=== PATIENT | male | born 1960 | race Caucasian/White ===

== ENCOUNTER 2016-06-10 14:42 | Inpatient (IN) | payer OTHER ==
[2016-06-10] MEDS ORDERED: Sodium Chloride 0.9% 10 ML Syringe FLUSH PRN (16:10)
[2016-06-10] MEDS ORDERED: Albuterol 0.083% 2.5 MG/3 ML Neb Soln NEB PRN (16:10)
[2016-06-10] MEDS ORDERED: Sodium Chloride 0.9% 1,000 ML IV SCH (16:15)
[2016-06-10] MEDS ORDERED: Nicotine 21 MG/24 Hr Patch ONE (16:51)
[2016-06-10] MEDS ORDERED: Ondansetron 4 MG/2 ML SDV IVPUSH PRN (17:11)
[2016-06-10] MEDS ORDERED: Acetaminophen 325 MG Tab PO PRN (17:44)
[2016-06-10] MEDS ORDERED: Acetaminophen 325 MG Tab ONE (17:45)
[2016-06-10] MEDS: Azithromycin 500 MG in Sodium Chloride 0.9% 250 ML IV SCH (17:51)
[2016-06-10] MEDS: chlordiazePOXIDE 25 MG Cap PO SCH (17:52)
[2016-06-10] MEDS: Nicotine 21 MG/24 Hr Patch TRDERM SCH (18:15)
[2016-06-10] MEDS ORDERED: Ketorolac 30 MG/ML SDV IVPUSH ONE (18:18)
[2016-06-10] MEDS ORDERED: Ketorolac 30 MG/ML SDV ONE (18:20)
[2016-06-10] MEDS: NS + KCl 20mEq/L 1,000 ML IV SCH (20:49)
[2016-06-11] MEDS: chlordiazePOXIDE 25 MG Cap PO SCH ×3 (00:22→16:23)
[2016-06-11] MEDS: NS + KCl 20mEq/L 1,000 ML IV SCH (04:04)
--- NOTE | 2016-06-11 09:56 | CR ---
DATE OF SERVICE: 06/10/16 CLINICAL DATA: Cough PA AND LATERAL CHEST: Comparison is made to a prior exam dated 12/12/11. The heart size is normal. The lungs are mildly hyperexpanded. There are poorly defined infiltrates in both mid lungs suspicious for pneumonia. The lungs are otherwise clear. A followup exam after treatment is recommended to confirm that these resolve. No pleural effusions. No pneumothorax. [id number] [facility]
[2016-06-11 13:23] VITALS: BP 123/70
[2016-06-11] MEDS: Azithromycin 500 MG in Sodium Chloride 0.9% 250 ML IV SCH (14:15)
--- NOTE | 2016-06-11 16:11 | PCM.DCSUM1 ---
Discharge Summary - Hospital Course Free Text/Narrative:: Pt was admitted with diagnosis of Acute left upper lobe pneumonia with atrial fibrillation and dehydration. He did have some bouts of loose stools. His sodium and potassium, were depleted from diarrhea. He was started on Iv azithromycin and also started on IV normal saline bolus followed by NS with 20 MEQ potassium at 125 cc/hr. 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 His initial troponin was negative. Patient did convert into normal sinus rhythm over night. In the morning he was feeling fine. remained afebrile. His white count was down to 17K. Mild cough. Pt was monitored over the day , he has not had a spike a fever and also has not had any more diarrhea. He has been feeding well and tolerating the diet. Pt has clinically improved and well hydrated. His Electrolytes are back to normal. Hence patient has been planned for discahrge. Plan is to continue azithromycin 250mg daily for next 3 days. Counselled on smoking cessation and started on nicotine patch. Incentive spirmotery every 2 hrs. Diet as tolerated. Followup in clinic in 1-2 wks for recheck. hem\ might need further cardiac workup, considering his recently afib and his strong family history of CAD. Brief History: Pt presented to clinic with 5 days history of fever with cough and feeling weak and short of breath. Work up did show Left upper lobe pneumonia with Afib and dehydration. Pt was admitted tfor treament of pneumonia. IV hydration and close cardiac monitoring. - Discharge Data Discharge Date: 06/11/16 Discharge Disposition: Home, Self-Care 01 Condition: Good - Discharge Diagnosis/Problem(s) (1) Left upper lobe pneumonia SNOMED Code(s): 054429823 ICD Code: J18.1 - LOBAR PNEUMONIA, UNSPECIFIED ORGANISM Status: Acute Current Visit: Yes - Patient Instructions Diet: Heart Healthy Diet Fluid Restriction: 1500 mL Activity: As Tolerated Driving: May Drive Today Showering/Bathing: May Shower Notify Provider of: Fever, Nausea and/or Vomiting - Discharge Plan Prescriptions/Med Rec: Azithromycin [IJD: Azithromycin] 250 mg PO DAILY #3 tab Nicotine [Nicotine Patch] 1 patch TD DAILY #14 patch.td24 Home Medications: Home Meds Azithromycin [IJD: Azithromycin] 250 mg PO DAILY #3 tab 06/11/16 [Rx] Nicotine [Nicotine Patch] 1 patch TD DAILY #14 patch.td24 06/11/16 [Rx] - Discharge Summary/Plan Comment DC Time >30 min.: Yes Discharge Summary/Plan Comment: Plan is to continue azithromycin 250mg daily for next 3 days. Counselled on smoking cessation and started on nicotine patch. Incentive spirmotery every 2 hrs. Diet as tolerated. Followup in clinic in 1-2 wks for recheck. he might need further cardiac workup, considering his recently afib and his strong family history of CAD. - General Info Date of Service: 06/11/16 Functional Status: Reports: tolerating diet, ambulating, urinating, incentive spirometry - Review of Systems General: Denies: Fever, Weakness, Fatigue HEENT: Denies: headaches, sinus congestion, rhinitis Pulmonary: Reports: cough. Denies: shortness of breath, sputum, hemoptysis, wheezing Cardiovascular: Denies: Chest Pain, Lightheadedness Gastrointestinal: Denies: Abdominal pain, Constipation, Diarrhea, Nausea, Vomiting Genitourinary: Denies: dysuria, frequency Musculoskeletal: Denies: joint pain, joint swelling Neurological: Denies: Dizziness, Weakness, Gait Disturbance Psychiatric: Denies: confusion, depression - Patient Data Vitals - Most Recent: Last Vital Signs Temp 98.7 F 06/11/16 13:00 Pulse 92 06/11/16 13:00 Resp 16 06/11/16 13:00 BP 123/70 06/11/16 13:00 Pulse Ox 95 06/11/16 13:00 Weight - Most Recent: 73.992 kg I&O - Last 24 hours: Intake & Output 06/11/16 06/11/16 06/11/16 06:59 14:59 22:59 Intake Total 2511 Balance 2511 Lab Results - Last 24 hrs: Laboratory Results - last 24 hr 06/11/16 06/11/16 Range/Units 07:00 07:10 WBC 17.5 H (4.0-11.0) K/uL RBC 4.21 L (4.50-6.50) M/uL Hgb 14.8 (13.0-18.0) g/dL Hct 41.5 (40.0-54.0) % MCV 99 H (76-96) fL MCH 35.2 H (27.0-32.0) pg MCHC 35.7 H (31.0-35.0) g/dL RDW 13.4 (11.0-16.0) % Plt Count 100 L (150-400) K/uL MPV 10.6 H (6.0-10.0) fL Neut % (Auto) 90.0 H (45.0-70.0) % Lymph % (Auto) 5.9 L (20.0-40.0) % [place] % (Auto) 4.0 (3.0-10.0) % Eos % (Auto) 0.0 L (1.0-5.0) % Baso % (Auto) 0.1 (0.0-0.5) % Neut # (Auto) 15.78 H (2.00-7.50) K/uL Lymph # (Auto) 1.04 L (1.50-4.00) K/uL [place] # (Auto) 0.70 (0.20-0.80) K/uL Eos # (Auto) 0.00 L (0.04-0.40) K/uL Baso # (Auto) 0.02 (0.02-0.10) K/uL Sodium 136 (136-145) mmol/L Potassium 3.8 (3.5-5.1) mmol/L Chloride 99 (98-107) mmol/L Carbon Dioxide 23.2 (21.0-32.0) mmol/L Anion Gap 17.6 H (5.0-15.0) mmol/L BUN 18 D (8-26) mg/dL Creatinine 1.30 (0.70-1.30) mg/dL Est Cr Clr Drug Dosing 70.17 mL/min Estimated GFR (MDRD) 58 L (>60) MLS/MIN BUN/Creatinine Ratio 13.8 (6-25) Glucose 105 H (74-100) mg/dL Calcium 8.0 L (8.5-10.1) mg/dL CANDE Results - Last 24 hrs: Microbiology 06/10/16 17:23 MRSA Surveillance Culture - Final Nares, Unspecified NO MRSA ISOLATED Med Orders - Current: Current Medications Acetaminophen (Tylenol) 650 mg PO Q4H PRN PRN Reason: Fever Last Admin: 06/10/16 17:50 Dose: 650 mg Albuterol (Proventil Neb Soln) 2.5 mg NEB Q6H PRN PRN Reason: Shortness Of Breath/wheezing Chlordiazepoxide HCl (Librium) 25 mg PO Q8H [facility] Last Admin: 06/11/16 09:01 Dose: 25 mg Azithromycin 500 mg/ Sodium (Chloride) 250 mls @ 250 mls/hr IV Q24H [facility] Last Admin: 06/11/16 14:15 Dose: 250 mls/hr Sodium Chloride (Normal Saline) 1,000 mls @ 125 mls/hr IV ASDIRECTED [facility] Last Admin: 06/10/16 17:00 Dose: 125 mls/hr Potassium Chloride/Sodium Chloride (Normal Saline With 20 Meq Kcl) 1,000 mls @ 125 mls/hr IV ASDIRECTED [facility] Last Admin: 06/11/16 04:04 Dose: 125 mls/hr Nicotine (Habitrol) 21 mg TRDERM DAILY [facility] Last Admin: 06/10/16 18:15 Dose: 21 mg Ondansetron HCl (Zofran) 4 mg IVPUSH Q6H PRN PRN Reason: Nausea Sodium Chloride (Saline Flush) 10 ml FLUSH ASDIRECTED PRN PRN Reason: Keep Vein Open Discontinued Medications Acetaminophen (Tylenol) Confirm Administered Dose 650 mg .ROUTE .STK-MED ONE Stop: 06/10/16 17:46 Last Admin: 06/10/16 17:50 Dose: Not Given Ketorolac Tromethamine (Toradol) 30 mg IVPUSH ONETIME ONE Stop: 06/10/16 18:19 Last Admin: 06/10/16 18:27 Dose: 30 mg Ketorolac Tromethamine (Toradol) Confirm Administered Dose 30 mg .ROUTE .STK- MED ONE Stop: 06/10/16 18:21 Last Admin: 06/10/16 19:44 Dose: Not Given Nicotine (Habitrol) Confirm Administered Dose 21 mg .ROUTE .STK-MED ONE Stop: 06/10/16 16:52 Last Admin: 06/10/16 19:44 Dose: Not Given - Exam General: Reports: alert, oriented, cooperative HEENT: Reports: Pupils equal, Pupils reactive, EOMI, Mucous membr. moist/pink Neck: Reports: supple Lungs: Reports: Decreased breath sounds (left upper lobe), Crackles (few in left infraclavicular region) Cardiovascular: Reports: Regular Rate, Regular Rhythm Abdomen: Reports: bowel sounds present, soft, no tenderness, no distension Extremities: Reports: no edema, normal pulses Skin: Reports: warm, dry, intact Neurological: Reports: no new focal deficit Psy/Mental Status: Reports: alert, normal affect, normal mood *Q Meaningful Use (DIS) - VTE *Q VTE Criteria *Q: - Stroke *Q Stroke Criteria *Q: - AMI *Q AMI Criteria *Q:
[2016-06-11] MEDS: Nicotine 21 MG/24 Hr Patch TRDERM SCH (16:24)
== END 2016-06-11 16:30 | disposition home or self-care (01) | DRG 194 ==
LOC: LB.CLINIC 14:42 → UNDOADMIN 15:45 → LB.MS 15:45
PROVIDERS: ADMIT Family Medicine; ATTEND Family Medicine
DX: J18.1 Lobar pneumonia, unspecified organism (principal); E87.1 Hypo-osmolality and hyponatremia; I48.91 Unspecified atrial fibrillation; E86.0 Dehydration; E87.6 Hypokalemia; Z82.49 Family history of ischemic heart disease and other diseases of the circulatory system; F17.210 Nicotine dependence, cigarettes, uncomplicated
CPT/HCPCS: 36415; 71020; 80048; 84484; 85025; 93005; A9270-GY; J0456; J1885; J3480; J7040; J7050

== ENCOUNTER 2016-11-07 12:37 | Emergency (ER) | payer MEDICAID, OTHER ==
[2016-11-07] MEDS ORDERED: Lidocaine 1% with EPINEPHrine 1:100,000 20 ML MDV ONE (13:00)
--- NOTE | 2016-11-07 13:18 | EDM.PDOC ---
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) Location: Reports: Neck (left side) Improves with: Reports: None Worsens with: Reports: None Treatments PHYSICAL PLANT MANAGER: Reports: Other (see below) (held pressure) - Related Data Allergies Allergy/AdvReac Type Severity Reaction Status Date / Time No Known Allergies Allergy Verified 06/10/16 15:55 Home Meds: Home Meds NK [No Known Home Meds] 11/07/16 [History] Past Medical History - Past Health History Medical/Surgical History: Denies Medical/Surgical History Social & Family History - Family History Family Medical History: Noncontributory - Tobacco Use Smoking Status *Q: Current Every Day Smoker Years of Tobacco use: 30 Packs/Tins Daily: 1 Used Tobacco, but Quit: No Second Hand Smoke Exposure: Yes - Caffeine Use Caffeine Use: Reports: None - Recreational Drug Use Recreational Drug Use: No ED ROS GENERAL - Review of Systems Review Of Systems: ROS reveals no pertinent complaints other than HPI. ED EXAM, GENERAL - Physical Exam Exam: See Below Exam Limited By: No Limitations General Appearance: Alert, WD/WN Head: Atraumatic, Normocephalic Neck: Other (laceration to the left side of neck, 2 cm long, linear, not bleeding) Respiratory/Chest: No Respiratory Distress, Lungs Clear, Normal Breath Sounds Cardiovascular: Regular Rate, Rhythm Back Exam: Full Range of Motion Extremities: Normal Inspection, Normal Range of Motion Neurological: Alert, Oriented, CN II-XII Intact, Normal Cognition, Normal Gait Psychiatric: Normal Affect Skin Exam: Warm, Dry ED GENERAL MEDICAL PROCEDURES - Laceration/Wound Repair Left Middle Mid-Anterior Lateral Neck Lac/wound length in cm: 2 Appearance: Subcutaneous Anesthetic Type: Local Local Anesthesia - Lidocaine (Xylocaine): 1% Plain Skin Prep: Providone-Iodine (Betadine), Saline, Sterile Drape Exploration/Debridement/Repair: Wound Explored, In a Bloodless Field, Explored to Base, No Foreign Material Found, Wound Margins Revised Closed with: Sutures Suture Size: 4-0 Suture Type: Nylon Repaired with: Vicryl Drain Placement: No Sterile Dressing Applied: Provider Tetanus Status Addressed: Yes Complications: No Course - Vital Signs Last Recorded V/S: Last Vital Signs Temp 96 F 11/07/16 12:40 Pulse 96 11/07/16 12:40 Resp 20 11/07/16 12:40 BP 140/110 H 11/07/16 12:40 Pulse Ox 97 11/07/16 12:40 - Re-Assessments/Exams Free Text/Narrative Re-Assessment/Exam: 11/07/16 13:15 Tolerated sutures without complication Departure - Departure Time of Disposition: 14:00 Disposition: Home, Self-Care 01 Condition: Good Clinical Impression: Laceration of neck - Discharge Information Instructions: Laceration Care, Adult Referrals: PCP,None [Primary Care Provider] - Forms: ED Department Discharge Care Plan Goals: Keep area clean and dry for 24 to [address] in 10 days to have sutures removed. Clinic # is [id number]. No tetanus given as stated has had one recently. - Problem List & Annotations (1) Laceration of neck SNOMED Code(s): 198633007 Code(s): S11.91XA - LACERATION W/O FOREIGN BODY OF UNSP PART OF NECK, INIT Status: Acute Priority: Medium Qualifiers: Encounter type: initial encounter Qualified Code(s): S11.91XA - Laceration without foreign body of unspecified part of neck, initial encounter - Problem List Review Problem List Initiated/Reviewed/Updated: Yes
[2016-11-07 20:15] VITALS: BP 130/90
== END 2016-11-07 13:15 | disposition home or self-care (01) ==
LOC: LB.ED 12:37
DX: S11.81XA Laceration without foreign body of other specified part of neck, initial encounter (principal); F17.210 Nicotine dependence, cigarettes, uncomplicated; W22.8XXA Striking against or struck by other objects, initial encounter
CPT/HCPCS: 12001; 99283-25

== ENCOUNTER 2017-05-01 13:40 | Observation (INO) | payer MEDICAID ==
--- NOTE | 2017-05-01 13:59 | EDM.PDOC ---
ED HPI GENERAL MEDICAL PROBLEM - General Chief Complaint: General Stated Complaint: A-FIB Time Seen by Provider: 05/01/17 13:40 Source of Information: Reports: Patient History Limitations: Reports: No Limitations - History of Present Illness INITIAL COMMENTS - FREE TEXT/NARRATIVE: According to patient he was fishing yesterday and last night he fell back wards on the ice and hit his lefy side of the back hard on the ice. he was able to breath and had not chest pain. He had drunk several beers, went to bed. Woke up today and started to feel like his heart was racing and not right. No fatigue. no chest pain, shortness of breath. No nausea or vomiting.His checked his pulse and was fast. He did try drinking some more beer today to see if the racing heart would get better, and it did not and hence came into emergency room. Pt was here in the emergency room in May of 2016 with pneumonia, when he had afib. Pt was advised to followup his his PCP, never followed up with physician after discharged from emergency room until today. Presently not on any meds. Onset: Today Onset Date: 05/01/17 Location: Reports: Chest (left posterior) Quality: Reports: Ache Severity: Mild Improves with: Reports: None Worsens with: Reports: None Associated Symptoms: Denies: Confusion, Chest Pain, Cough, Fever/Chills, Headaches, Nausea/Vomiting, Rash, Seizure, Shortness of Breath, Syncope, Weakness - Related Data Allergies Allergy/AdvReac Type Severity Reaction Status Date / Time No Known Allergies Allergy Verified 06/10/16 15:55 Home Meds: Home Meds NK [No Known Home Meds] 11/07/16 [History] Past Medical History - Past Health History Medical/Surgical History: Denies Medical/Surgical History Social & Family History - Family History Family Medical History: Noncontributory - Tobacco Use Smoking Status *Q: Heavy Tobacco Smoker Years of Tobacco use: 37 Packs/Tins Daily: 1 Used Tobacco, but Quit: No Second Hand Smoke Exposure: No - Caffeine Use Caffeine Use: Reports: Coffee - Alcohol Use Days Per Week of Alcohol Use: 5 Number of Drinks Per Day: 2 Total Drinks Per Week: 10 - Recreational Drug Use Recreational Drug Use: No ED ROS GENERAL - Review of Systems Review Of Systems: See Below Constitutional: Denies: Fever, Chills, Weakness, Fatigue HEENT: Denies: Contact Lenses, Rhinitis, Throat Pain, Throat Swelling Respiratory: Denies: Shortness of Breath, Pleuritic Chest Pain, Cough, Sputum Cardiovascular: Denies: Chest Pain, Lightheadedness Endocrine: Denies: Fatigue GI/Abdominal: Denies: Nausea, Vomiting : Denies: Dysuria, Flank Pain, Urgency, Urinary Retention Musculoskeletal: Reports: Back Pain (left mid back from fall). Denies: Joint Pain, Joint Swelling Skin: Denies: Bruising, Pruritis, Rash, Erythema Neurological: Denies: Confusion, Dizziness, Headache, Numbness, Paresthesia, Tingling, Tremors, Trouble Speaking, Difficulty Walking, Weakness Psychiatric: Denies: Agitation, Anxiety, Confusion ED EXAM, GENERAL - Physical Exam Exam: See Below Exam Limited By: No Limitations General Appearance: Alert, WD/WN, No Apparent Distress, Other (smells of alcohol ) Eye Exam: Bilateral Eye: EOMI, PERRL Ears: Normal External Exam, Normal Canal, Hearing Grossly Normal, Normal TMs Ear Exam: Bilateral Ear: Auricle Normal, Canal Normal, TM normal Nose: Normal Inspection, Normal Mucosa, No Blood Throat/Mouth: Normal Inspection, Normal Lips, Normal Teeth, Normal Gums, Normal Oropharynx, Normal Voice, No Airway Compromise Head: Atraumatic, Normocephalic Neck: Normal Inspection, Supple, Non-Tender, Full Range of Motion Respiratory/Chest: No Respiratory Distress, Lungs Clear, Normal Breath Sounds, No Accessory Muscle Use, Other (mild tenderness over the posterior left chest wall. no crepitus, no swelling or bruising) Cardiovascular: Normal Peripheral Pulses (irregular), No Edema, No Gallop, No JVD, Irregularly Irregular Peripheral Pulses: 2+: Carotid (L), Carotid (R), Radial (L), Radial (R) GI/Abdominal: Normal Bowel Sounds, Soft, Non-Tender, No Organomegaly, No Distention, No Abnormal Bruit, No Mass Extremities: Normal Inspection, Normal Range of Motion, Non-Tender, Normal Capillary Refill, No Pedal Edema Neurological: Alert, Oriented, CN II-XII Intact, Normal Cognition, Normal Gait, Normal Reflexes, No Motor/Sensory Deficits EKG INTERPRETATION EKG Date: 05/01/17 Rhythm: A-Fib Rate (Beats/Min): 172 [place]: Normal QRS: Normal ST-T: Normal QT: Normal Course - Vital Signs Text/Narrative:: Pt is in Atrial fibrillation with rapid ventricular rate. His BP is 150/123mmhg and his heart rate is running around 160-180s and irregular. His CBC is normal. His CMP is normal. His Troponin is negative. TSH and ETOH pending. His A-fib which appears like chronic, as he had afib in May of 2016 too.He has never seen physician and had any workup. At this point, I have discussed with patient and his , that he probably need the heart rate down to prevent further stress to the heart. The only way to do that is by starting him on diltiazem drip to control the heart rate.Pathophysiology of Afib discussed with patient. Pt will be admitted for observation, started on diltiazem bolus of 15mg followed by 5mg/hr maintainence drip. 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 Diltiazem should help bring his BP down too. His chest xray is normal, and his WBC is normal, there is no infective process triggering the Afib. It might be uncontrolled blood pressure, alcohol or hypothyroidism. - Orders/Labs/Meds Orders: Active Orders 24 hr Category Date Time Status EKG Documentation Completion [RC] ASDIRECTED Care 05/01/17 13:49 Active Chest 2V [CR] Stat Exams 05/01/17 13:50 Taken ETOH [ETHANOL BLOOD MEDICAL] [CHEM] Stat Lab 05/01/17 14:15 Received TSH ULTRASENSITIVE [CHEM] Stat Lab 05/01/17 14:15 Received Labs: Laboratory Tests 05/01/17 05/01/17 Range/Units 14:15 14:15 WBC 9.4 D (4.0-11.0) K/uL RBC 4.39 L (4.50-6.50) M/uL Hgb 14.9 (13.0-18.0) g/dL Hct 43.1 (40.0-54.0) % MCV 98 H (76-96) fL MCH 33.9 H (27.0-32.0) pg MCHC 34.6 (31.0-35.0) g/dL RDW 13.5 (11.0-16.0) % Plt Count 263 D (150-400) K/uL MPV 9.9 (6.0-10.0) fL Neut % (Auto) 72.9 H (45.0-70.0) % Lymph % (Auto) 17.6 L (20.0-40.0) % [place] % (Auto) 7.0 (3.0-10.0) % Eos % (Auto) 1.1 (1.0-5.0) % Baso % (Auto) 1.4 H (0.0-0.5) % Neut # (Auto) 6.86 (2.00-7.50) K/uL Lymph # (Auto) 1.65 (1.50-4.00) K/uL [place] # (Auto) 0.66 (0.20-0.80) K/uL Eos # (Auto) 0.10 (0.04-0.40) K/uL Baso # (Auto) 0.13 H (0.02-0.10) K/uL Sodium 147 H (136-145) mmol/L Potassium 3.6 (3.5-5.1) mmol/L Chloride 108 H (98-107) mmol/L Carbon Dioxide 21.6 (21.0-32.0) mmol/L Anion Gap 21.0 H (5.0-15.0) mmol/L BUN 7 L D (8-26) mg/dL Creatinine 0.93 D (0.70-1.30) mg/dL Est Cr Clr Drug Dosing TNP Estimated GFR (MDRD) > 60 (>60) MLS/MIN BUN/Creatinine Ratio 7.5 (6-25) Glucose 101 H (74-100) mg/dL Calcium 8.3 L (8.5-10.1) mg/dL Total Bilirubin 0.6 (0.0-1.0) mg/dL AST 25 (15-37) U/L ALT 21 (12-78) U/L Alkaline Phosphatase 84 (46-116) U/L Troponin I < 0.017 (0.000-0.060) ng/mL Total Protein 7.2 (6.4-8.2) g/dL Albumin 3.1 L (3.4-5.0) g/dL Globulin 4.1 (2.2-4.2) g/dL Albumin/Globulin Ratio 0.8 (0.8-2.0) Departure - Departure Time of Disposition: 15:30 Disposition: Refer to Observation Condition: Fair Clinical Impression: Atrial fibrillation with rapid ventricular response - Discharge Information Referrals: PCP,None [Primary Care Provider] - Forms: ED Department Discharge - Problem List & Annotations (1) Atrial fibrillation with rapid ventricular response SNOMED Code(s): 371007165255718 Code(s): I48.91 - UNSPECIFIED ATRIAL FIBRILLATION Status: Acute Current Visit: Yes - Problem List Review Problem List Initiated/Reviewed/Updated: Yes - My Orders Last 24 Hours: My Active Orders 05/01/17 13:49 EKG Documentation Completion [RC] ASDIRECTED 05/01/17 13:50 Chest 2V [CR] Stat 05/01/17 14:15 ETOH [ETHANOL BLOOD MEDICAL] [CHEM] Stat TSH ULTRASENSITIVE [CHEM] Stat - Assessment/Plan Admission H&P: Please use this note as an admission H&P Last 24 Hours: My Active Orders 05/01/17 13:49 EKG Documentation Completion [RC] ASDIRECTED 05/01/17 13:50 Chest 2V [CR] Stat 05/01/17 14:15 ETOH [ETHANOL BLOOD MEDICAL] [CHEM] Stat TSH ULTRASENSITIVE [CHEM] Stat Assessment:: Atrial fibrillation with RVR Plan: Pt is in Atrial fibrillation with rapid ventricular rate. His BP is 150/123mmhg and his heart rate is running around 160-180s and irregular. His CBC is normal. His CMP is normal. His Troponin is negative. TSH and ETOH pending. His A-fib which appears like chronic, as he had afib in May of 2016 too.He has never seen physician and had any workup. At this point, I have discussed with patient and his , that he probably need the heart rate down to prevent further stress to the heart. The only way to do that is by starting him on diltiazem drip to control the heart rate.Pathophysiology of Afib discussed with patient. Pt will be admitted for observation, started on diltiazem bolus of 15mg followed by 5mg/hr maintainence drip. 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 Diltiazem should help bring his BP down too. His chest xray is normal, and his WBC is normal, there is no infective process triggering the Afib. It might be uncontrolled blood pressure, alcohol or hypothyroidism.
[2017-05-01] MEDS ORDERED: Sodium Chloride 0.9% 10 ML Syringe FLUSH PRN (15:26)
[2017-05-01] MEDS ORDERED: Diltiazem 25 MG/5 ML SDV IVPUSH ONE (15:29)
[2017-05-01] MEDS ORDERED: Diltiazem 100 MG in Sodium Chloride 0.9% 100 ML IV SCH (15:30)
--- NOTE | 2017-05-01 22:41 | PCM.SN ---
- Free Text/Narrative Note: I did get nurse call around 10 as patient had converted and he did get EKG done after conversion. EKG did shows mild St segment elevation like changes in infero -lateral leads. pt has been asymptomatic and has no chest pain. 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 and the EKG were faxed to him for evaluation. Dr. Dennis reassured that patient does not have Acute TN but they are the flutter waves overlapping the beats . Also repeat troponin that was done was negative and patient has been asymptomatic. PLan was to continue diltiazem drip until Am and when rate is well controlled to get him on oral diltiazem.
[2017-05-02] MEDS ORDERED: Diltiazem IR 60 MG Tab PO ONE (08:12)
[2017-05-02 08:52] VITALS: BP 125/83
--- NOTE | 2017-05-02 09:22 | PCM.DCSUM1 ---
Discharge Summary - Hospital Course Free Text/Narrative:: Pt was admitted with the diagnosis of Atrial fibrillation with RVR with rates running around 170-190s. Pt's LAbs were stable other than his ETOH level of 178. CBC, CMP normal. TSH normal. Troponin negative. Pt did receive diltiazem IV bolus of 15mg followed by 5mg/hr drip. Pt was admitted for observation and cardiac monitoring. Pt's ventricular rate did gradually start to drop over the day.He remained asymptomatic. Around 10 PM last night his rate dropped under 100 and at which point repeat EKG was done which was concerning for changes in infero-lateral lead, but patinet was asymptomatic. I did contact Dr. Fisher the director of research and development at [facility] and have him review the EKG, he reassured that it was the atrial flutter overlap causing it. Also troponin was repeated which was negative. Hence pt was kept on cardizem drip overnight. Today morning patient rate is around 80s and also his rhythm is regular. I have discontinued cardizem drip and started him on oral diltiazem 90mg TID. I have counselled patient on stroke prophylaxis today, but have not started on coumadin as he is in sinus rhythm. This might have been a random or paroxysmal episodes. I have advised him to followup on wednesday for recheck and will repeat EKG and if his rhythm is irregular , he might need to go on anticoagulation therapy. also ECHO has been scheduled. Pt understand and agrees with the plan. Brief History: Pt presented to emergency room yesterday with palpitations started last night. no chest pain, fatigue SOB. Pt was in Afib with RVR admitted for rate control. Kindly see H&P for details. - Discharge Data Discharge Date: 05/02/17 Discharge Disposition: Home, Self-Care 01 Condition: Serious - Discharge Diagnosis/Problem(s) (1) Atrial fibrillation with rapid ventricular response SNOMED Code(s): [id number] ICD Code: I48.91 - UNSPECIFIED ATRIAL FIBRILLATION Status: Acute Current Visit: Yes - Patient Instructions Diet: Heart Healthy Diet Fluid Restriction: 1500 mL Activity: As Tolerated Driving: May Drive Today Showering/Bathing: May Shower - Discharge Plan Home Medications: Home Meds NK [No Known Home Meds] 11/07/16 [History] Forms: ED Department Discharge Referrals: PCP,None [Primary Care Provider] - - Discharge Summary/Plan Comment DC Time >30 min.: Yes Discharge Summary/Plan Comment: I have discontinued cardizem drip and started him on oral diltiazem 90mg TID. I have counselled patient on stroke prophylaxis today, but have not started on coumadin as he is in sinus rhythm. This might have been a random or paroxysmal episodes. I have advised him to followup on wednesday for recheck and will repeat EKG and if his rhythm is irregular , he might need to go on anticoagulation therapy. also ECHO has been scheduled. - General Info Date of Service: 05/02/17 Functional Status: Reports: Tolerating Diet, Ambulating, Urinating - Review of Systems General: Denies: Fever, Weakness, Fatigue, Night Sweats HEENT: Denies: Headaches, Sore Throat, Visual Changes Pulmonary: Denies: Shortness of Breath, Pleuritic Chest Pain, Sputum, Hemoptysis Cardiovascular: Denies: Chest Pain, Lightheadedness Gastrointestinal: Denies: Abdominal Pain, Nausea, Vomiting Genitourinary: Denies: Frequency, Burning, Flank Pain Musculoskeletal: Denies: Joint Pain, Joint Swelling Skin: Denies: Pruritis, Rash Neurological: Denies: Confusion, Dizziness, Headache, Numbness, Tingling, Weakness - Patient Data Vitals - Most Recent: Last Vital Signs Temp Pulse 79 05/02/17 08:51 Resp 20 05/02/17 03:43 BP 125/83 05/02/17 08:51 Pulse Ox 96 05/02/17 03:43 Weight - Most Recent: 83.915 kg I&O - Last 24 hours: Intake & Output 05/01/17 05/02/17 05/02/17 22:59 06:59 14:59 Intake Total 1016 Balance 1016 Lab Results - Last 24 hrs: Laboratory Results - last 24 hr 05/01/17 Range/Units 22:30 Troponin I 0.027 D (0.000-0.060) ng/mL Med Orders - Current: Current Medications Diltiazem HCl 100 mg/ Sodium (Chloride) 100 mls @ 5 mls/hr IV TITRATE MANDI; 5 MG /HR PRN Reason: Protocol Last Admin: 05/01/17 16:35 Dose: 5 mg/hr, 5 mls/hr Sodium Chloride (Saline Flush) 10 ml FLUSH ASDIRECTED PRN PRN Reason: Keep Vein Open Discontinued Medications Diltiazem HCl (Diltiazem) 15 mg IVPUSH ONETIME ONE Stop: 05/01/17 15:30 Last Admin: 05/01/17 16:30 Dose: 15 mg Diltiazem HCl (Cardizem) 90 mg PO ONETIME ONE Stop: 05/02/17 08:13 Last Admin: 05/02/17 08:51 Dose: 90 mg - Exam General: Reports: Alert, Oriented HEENT: Reports: Pupils Equal, Pupils Reactive, EOMI, Mucous Membr. Moist/[place] Neck: Reports: Supple Lungs: Reports: Clear to Auscultation, Normal Respiratory Effort Cardiovascular: Reports: Regular Rate, Regular Rhythm GI/Abdominal Exam: Normal Bowel Sounds, Soft, Non-Tender, No Organomegaly, No Distention, No Abnormal Bruit, No Mass, Pelvis Stable Back Exam: Reports: Normal Inspection, Full Range of Motion Extremities: Normal Inspection, Normal Range of Motion, Non-Tender, No Pedal Edema, Normal Capillary Refill Skin: Reports: Warm, Dry, Intact Neurological: Reports: No New Focal Deficit *Q Meaningful Use (DIS) - VTE *Q VTE Criteria *Q: - Stroke *Q Stroke Criteria *Q: - AMI *Q AMI Criteria *Q:
--- NOTE | 2017-05-02 19:18 | CR ---
DATE OF SERVICE: 05/01/2017 CLINICAL DATA: AFIB. PA AND LATERAL CHEST: Comparison is made to a prior exam dated 06/10/2016. The heart size is normal. The lungs are mildly hyperexpanded but clear. No pneumothorax. No pleural effusions. No other significant findings. IMPRESSION: Findings consistent with COPD. No acute abnormalities. [id number] [facility]
== END 2017-05-02 10:18 | disposition home or self-care (01) ==
LOC: LB.ED 13:40 → LB.MS 15:27 → UNDOADMOB 16:15 → UNDODISOB 05-02 10:18
PROVIDERS: ADMIT Family Medicine; ATTEND Family Medicine
DX: I48.91 Unspecified atrial fibrillation (principal); F17.210 Nicotine dependence, cigarettes, uncomplicated; W00.0XXA Fall on same level due to ice and snow, initial encounter
CPT/HCPCS: 36415; 71046; 80053; 84443; 84484; 85025; 93005; 99284; A9270; G0480; J3490; J7030; 96374; 99217; 99220; G0378

== ENCOUNTER 2017-11-22 19:40 | Emergency (ER) | payer BC, MEDICAID ==
[2017-11-22] MEDS ORDERED: Amoxicillin/Clavulanate K 875-125 MG Tab ONE (20:00)
[2017-11-22] MEDS ORDERED: predniSONE 10 MG Tab ONE (20:00)
[2017-11-22 20:50] VITALS: BP 125/84
--- NOTE | 2017-11-25 14:08 | EDM.PDOC ---
ED HPI GENERAL MEDICAL PROBLEM - General Chief Complaint: Respiratory Problem Stated Complaint: COUGH Time Seen by Provider: 11/22/17 20:00 Source of Information: Reports: Patient History Limitations: Reports: No Limitations - History of Present Illness INITIAL COMMENTS - FREE TEXT/NARRATIVE: This is a 57yo M here for cough. Nursing did vitals and note a pulse of 112. EKG requested verbally on notification of patient in ER. Patient states he does have some fatigue and cough but denies any chest pain, no shortness of breath on exertion, no dyspnea, no other symptoms. He was told by [facility] Nurse that he needs a further workup. Onset: Gradual Duration: Day(s): Location: Reports: Generalized Severity: Mild Improves with: Reports: None Worsens with: Reports: None Associated Symptoms: Reports: Cough, Shortness of Breath - Related Data Allergies Allergy/AdvReac Type Severity Reaction Status Date / Time No Known Allergies Allergy Verified 11/22/17 20:14 Home Meds: Home Meds Diltiazem [Cardizem] 120 mg PO BEDTIME 11/22/17 [History] Past Medical History - Past Health History Medical/Surgical History: Denies Medical/Surgical History Cardiovascular History: Reports: Afib Respiratory History: Reports: COPD Gastrointestinal History: Reports: None Genitourinary History: Reports: None Musculoskeletal History: Reports: Back Pain, Chronic Neurological History: Reports: None Psychiatric History: Reports: None Endocrine/Metabolic History: Reports: None Oncologic (Cancer) History: Reports: None Dermatologic History: Reports: None - Infectious Disease History Infectious Disease History: Reports: Chicken Pox, Measles, Mumps - Past Surgical History GI Surgical History: Reports: Hernia, Inguinal Social & Family History - Family History Family Medical History: Noncontributory - Tobacco Use Smoking Status *Q: Current Every Day Smoker Years of Tobacco use: 39 Packs/Tins Daily: 1 Second Hand Smoke Exposure: Yes - Caffeine Use Caffeine Use: Reports: Coffee, Soda - Recreational Drug Use Recreational Drug Use: No ED ROS GENERAL - Review of Systems Review Of Systems: ROS reveals no pertinent complaints other than HPI. ED EXAM, GENERAL - Physical Exam Exam: See Below Exam Limited By: No Limitations General Appearance: Alert, WD/WN, No Apparent Distress Eye Exam: Bilateral Eye: EOMI, PERRL Ears: Normal External Exam Nose: Normal Inspection Throat/Mouth: Normal Inspection, Normal Lips, Normal Teeth, Normal Gums, Normal Oropharynx, Normal Voice, No Airway Compromise Head: Atraumatic, Normocephalic Neck: Normal Inspection, Supple Respiratory/Chest: No Respiratory Distress, Lungs Clear, Normal Breath Sounds Cardiovascular: Normal Peripheral Pulses, Tachycardia GI/Abdominal: Normal Bowel Sounds Back Exam: Normal Inspection Extremities: Normal Inspection Neurological: Alert, Oriented, CN II-XII Intact Psychiatric: Normal Affect, Normal Mood Skin Exam: Warm, Dry, Intact EKG INTERPRETATION EKG Interpretation Comments: Discussed results with Dr. Lowery. He notes a 2:1 Atrial tachycardia and does not feel that the 1st degree AV block is from the diltiazem despite common adverse reactions. Discussed management. Course - Vital Signs Last Recorded V/S: Last Vital Signs Temp 35.8 C 11/22/17 19:52 Pulse 112 H 11/22/17 19:52 Resp 16 11/22/17 19:52 BP 125/84 11/22/17 19:52 Pulse Ox 99 11/22/17 19:52 - Orders/Labs/Meds Meds: Medications Discontinued Medications Generic Name Dose Route Start Last Admin Trade Name Hugo PRN Reason Stop Dose Admin Amoxicillin/Clavulanate Potassium 20 tab 11/22/17 20:00 Augmentin 875 Mg/125 Mg .ROUTE 11/22/17 20:01 .STK-MED ONE Prednisone 150 mg 11/22/17 20:00 Prednisone .ROUTE 11/22/17 20:01 .STK-MED ONE Departure - Departure Time of Disposition: 21:30 Disposition: Home, Self-Care 01 Condition: Good Clinical Impression: Atrial tachycardia determined by electrocardiography COPD (chronic obstructive pulmonary disease) Qualifiers: COPD type: unspecified COPD Qualified Code(s): J44.9 - Chronic obstructive pulmonary disease, unspecified - Discharge Information Instructions: Aspirin, ASA chewable tablets, Amoxicillin; Clavulanic Acid tablets, Budesonide; Formoterol Inhalation, Chronic Obstructive Pulmonary Disease, [id number], First-Degree Atrioventricular Block, Prednisone tablets Referrals: PCP,None [Primary Care Provider] - Forms: ED Department Discharge Additional Instructions: - Increase Diltiazem 120 mg to 2 tablets daily. - Check pulse every morning, if Pulse is below 100 (60-100 per minute), may report to work tomorrow. - Aspirin 81 mg daily in the morning, chew the tablet. - Symbicort inhaler, inhale 2 puffs 2 times daily. - Augmentin 875/125 mg take one tablet 2 times daily. - Prednisone 10 mg, take 5 tablets every morning for 3 days. - Follow up in the clinic anytime within this week, or earlier as needed. - Will do the following procedures as an outpatient: > B12, Folate > Repeat CT of the Chest > TB Skin Test - Problem List Review Problem List Initiated/Reviewed/Updated: Yes - Assessment/Plan Plan: Counseled on cardiology recommendations and patient adamant he does not want to be admitted. Patient placed on increased does of diltiazem and if not rate controlled in the AM to return to clinic or ER. Patient will f/u as directed. Discussed COPD and use of Symbicort and prednisone burst. F/u in clinic as routine and as scheduled in the next 2 days. Counseled on COPD and Atrial tach and AV block and f/u. Patient understands concerns and will f/u as directed.
== END 2017-11-22 21:28 | disposition home or self-care (01) ==
LOC: LB.ED 19:40
DX: J44.9 Chronic obstructive pulmonary disease, unspecified (principal); I47.1 Supraventricular tachycardia; F17.210 Nicotine dependence, cigarettes, uncomplicated; I48.91 Unspecified atrial fibrillation
CPT/HCPCS: 93005; 99283-25; A9270-GY

== ENCOUNTER 2019-07-31 11:22 | Emergency (ER) | payer BC ==
[2019-07-31 12:47] VITALS: BP 151/98; PULSE 83
--- NOTE | 2019-07-31 13:25 | EDM.PDOC ---
ED HPI GENERAL MEDICAL PROBLEM - General Chief Complaint: General Stated Complaint: AFIB Time Seen by Provider: 07/31/19 12:30 Source of Information: Reports: Patient History Limitations: Reports: No Limitations - History of Present Illness INITIAL COMMENTS - FREE TEXT/NARRATIVE: This patient presents to the ED for evaluation of feeling "jittery." He states he noted this 2 days ago and didn't want to come in. His is concerned he is in A-fibrillation again. He denies any other symptoms including difficulty breathing, cough, chest pain, headache, nausea, vomiting, fever. He does drink alcohol regularly but denies use today; however, there seems to be a faint odor of alcohol about his today. He also states he smokes 1 pack per day. He denies other drug use. Patient states he has been taking his usual medications as previously prescribed. He denies syncopal episodes, any numbness or tingling. Onset: Sudden Onset Date: 07/29/19 Onset Time: 12:00 Duration: Intermittent Location: Reports: Generalized Severity: Mild Improves with: Reports: None Worsens with: Reports: None Associated Symptoms: Denies: Confusion, Chest Pain, Cough, Diaphoresis, Fever/ Chills, Headaches, Loss of Appetite, Malaise, Nausea/Vomiting, Rash, Shortness of Breath, Syncope, Weakness - Related Data Allergies Allergy/AdvReac Type Severity Reaction Status Date / Time No Known Allergies Allergy Verified 07/31/19 12:14 Home Meds: Home Meds Diltiazem [Cardizem] 180 mg PO BEDTIME 11/22/17 [History] Flecainide Acetate 1 tab PO DAILY 07/31/19 [History] Past Medical History - Past Health History Medical/Surgical History: Denies Medical/Surgical History Cardiovascular History: Reports: Afib Respiratory History: Reports: COPD Gastrointestinal History: Reports: None Genitourinary History: Reports: None Musculoskeletal History: Reports: Back Pain, Chronic Neurological History: Reports: None Psychiatric History: Reports: None Endocrine/Metabolic History: Reports: None Oncologic (Cancer) History: Reports: None Dermatologic History: Reports: None - Infectious Disease History Infectious Disease History: Reports: Chicken Pox, Measles, Mumps - Past Surgical History GI Surgical History: Reports: Hernia, Inguinal Social & Family History - Family History Family Medical History: Noncontributory - Tobacco Use Smoking Status *Q: Current Every Day Smoker Years of Tobacco use: 35 Packs/Tins Daily: 1 Used Tobacco, but Quit: No - Caffeine Use Caffeine Use: Reports: Coffee, Soda - Alcohol Use Days Per Week of Alcohol Use: 7 Number of Drinks Per Day: 3 Total Drinks Per Week: 21 - Recreational Drug Use Recreational Drug Use: No ED ROS GENERAL - Review of Systems Review Of Systems: Comprehensive ROS is negative, except as noted in HPI. ED EXAM, GENERAL - Physical Exam Exam: See Below Exam Limited By: No Limitations General Appearance: Alert, WD/WN, No Apparent Distress Eye Exam: Bilateral Eye: PERRL Ears: Normal External Exam Nose: Normal Inspection, Normal Mucosa Throat/Mouth: Normal Inspection, Normal Oropharynx Head: Atraumatic, Normocephalic Neck: Normal Inspection, Supple, Non-Tender, Full Range of Motion Respiratory/Chest: No Respiratory Distress, Lungs Clear, Normal Breath Sounds, No Accessory Muscle Use Cardiovascular: Regular Rate, Rhythm GI/Abdominal: Normal Bowel Sounds, Soft, Non-Tender, No Distention Extremities: Normal Range of Motion Neurological: Alert, Oriented Psychiatric: Normal Affect Skin Exam: Warm, Dry, Intact Course - Vital Signs Last Recorded V/S: Last Vital Signs Temp 36.3 C 07/31/19 11:58 Pulse 83 07/31/19 11:58 Resp 16 07/31/19 11:58 BP 151/98 H 07/31/19 11:58 Pulse Ox 100 07/31/19 11:58 - Orders/Labs/Meds Orders: Active Orders 24 hr Category Date Time Status EKG Documentation Completion [RC] ASDIRECTED Care 07/31/19 12:00 Active B-TYPE NATRIURETIC PEPTIDE,BNP [CHEM] Stat Lab 07/31/19 12:14 Ordered EKG 12 Lead [EK] Routine Ther 07/31/19 12:00 Ordered Labs: Laboratory Tests 07/31/19 07/31/19 Range/Units 12:30 12:30 WBC 15.2 H D (4.0-11.0) K/uL RBC 4.38 L (4.50-6.50) M/uL Hgb 15.1 (13.0-18.0) g/dL Hct 42.2 (40.0-54.0) % MCV 96 (76-96) fL MCH 34.5 H (27.0-32.0) pg MCHC 35.8 H (31.0-35.0) g/dL RDW 13.6 (11.0-16.0) % Plt Count 243 (150-400) K/uL MPV 8.9 (6.0-10.0) fL Neut % (Auto) 84.7 H (45.0-70.0) % Lymph % (Auto) 8.5 L (20.0-40.0) % [place] % (Auto) 6.1 (3.0-10.0) % Eos % (Auto) 0.1 L (1.0-5.0) % Baso % (Auto) 0.6 H (0.0-0.5) % Neut # (Auto) 12.84 H (2.00-7.50) K/uL Lymph # (Auto) 1.29 L (1.50-4.00) K/uL [place] # (Auto) 0.93 H (0.20-0.80) K/uL Eos # (Auto) 0.02 L (0.04-0.40) K/uL Baso # (Auto) 0.09 (0.02-0.10) K/uL Sodium 141 (136-145) mmol/L Potassium 4.1 (3.5-5.1) mmol/L Chloride 102 (98-107) mmol/L Carbon Dioxide 27.5 D (21.0-32.0) mmol/L Anion Gap 15.6 H (5.0-15.0) mmol/L BUN 8 (8-26) mg/dL Creatinine 0.95 (0.70-1.30) mg/dL Est Cr Clr Drug Dosing 95.77 mL/min Estimated GFR (MDRD) > 60 (>60) MLS/MIN BUN/Creatinine Ratio 8.4 (6-25) Glucose 104 H (74-100) mg/dL Calcium 8.6 (8.5-10.1) mg/dL Troponin I 0.003 D (0.000-0.060) ng/mL TSH, Ultra Sensitive 1.327 (0.358-3.740) uIU/mL Departure - Departure Time of Disposition: 13:30 Disposition: Home, Self-Care 01 Condition: Good Clinical Impression: Jittery feeling - Discharge Information Referrals: PCP,None [Primary Care Provider] - Sepsis Event Note - Evaluation Sepsis Screening Result: No Definite Risk - Focused Exam Vital Signs: Vital Signs Temp Pulse Resp BP Pulse Ox 07/31/19 11:58 36.3 C 83 16 151/98 H 100 Date Exam was Performed: 07/31/19 Time Exam was Performed: 13:17 - My Orders Last 24 Hours: My Active Orders 07/31/19 12:00 EKG Documentation Completion [RC] ASDIRECTED EKG 12 Lead [EK] Routine 07/31/19 12:14 B-TYPE NATRIURETIC PEPTIDE,BNP [CHEM] Stat - Assessment/Plan Last 24 Hours: My Active Orders 07/31/19 12:00 EKG Documentation Completion [RC] ASDIRECTED EKG 12 Lead [EK] Routine 07/31/19 12:14 B-TYPE NATRIURETIC PEPTIDE,BNP [CHEM] Stat
== END 2019-07-31 13:29 | disposition home or self-care (01) ==
LOC: LB.ED 11:22
DX: R45.0 Nervousness (principal); I48.91 Unspecified atrial fibrillation; J44.9 Chronic obstructive pulmonary disease, unspecified; F17.210 Nicotine dependence, cigarettes, uncomplicated
CPT/HCPCS: 36415; 80048; 83880; 84443; 84484; 85025; 93005; 99283; 99283-25

== ENCOUNTER 2021-03-24 07:44 | Emergency (ER) | payer BC ==
[2021-03-24] MEDS ORDERED: Lactated Ringers 1,000 ML IV ONE (09:26)
[2021-03-24] MEDS ORDERED: Morphine 2 MG/ML SYRINGE IVPUSH ONE (09:56)
[2021-03-24] MEDS ORDERED: Morphine 2 MG/ML SYRINGE ONE ×2 (10:05→15:40)
[2021-03-24] MEDS ORDERED: Sodium Chloride 0.9% 10 ML Syringe FLUSH PRN (10:41)
[2021-03-24] MEDS ORDERED: Sodium Chloride 0.9% 1,000 ML IV SCH (10:45)
[2021-03-24] MEDS: VANCOmycin 1.5 GM/300 ML 300 ML IV SCH (11:10)
[2021-03-24] MEDS: Vancomycin 1 GM SDV PO SCH ×3 (11:22→21:19)
[2021-03-24] MEDS: Meropenem 1 GM in Sodium Chloride 0.9% 100 ML IV SCH (12:50)
[2021-03-24] MEDS: Morphine 2 MG/ML SYRINGE IVPUSH PRN (15:35)
[2021-03-24] MEDS ORDERED: HYDROmorphone 2 MG/ML SDV IVPUSH ONE (17:31)
[2021-03-24] MEDS ORDERED: HYDROmorphone 2 MG/ML SDV ONE (17:52)
[2021-03-24] MEDS: HYDROmorphone 2 MG/ML SDV IVPUSH PRN (21:34)
[2021-03-25] MEDS: HYDROmorphone 2 MG/ML SDV IVPUSH PRN ×3 (02:52→12:30)
[2021-03-25] MEDS: Vancomycin 1 GM SDV PO SCH ×2 (04:33→10:25)
[2021-03-25] MEDS: Meropenem 1 GM in Sodium Chloride 0.9% 100 ML IV SCH (08:31)
[2021-03-25] MEDS: VANCOmycin 1.5 GM/300 ML 300 ML IV SCH (09:09)
[2021-03-25] MEDS ORDERED: Sodium Chloride 0.9% 1,000 ML IV SCH (09:15)
[2021-03-25] MEDS: Morphine 2 MG/ML SYRINGE IVPUSH PRN ×2 (11:20→15:12)
[2021-03-25 12:54] VITALS: BP 137/86; PULSE 87
[2021-03-25] MEDS ORDERED: Flecainide 50 MG Tab PO SCH (20:00)
[2021-03-26] MEDS ORDERED: Diltiazem 180 MG Cap.CD PO SCH (08:00)
[2021-03-26] MEDS ORDERED: predniSONE 10 MG Tab PO SCH (08:00)
== END 2021-03-25 15:50 | disposition still patient (30) ==
LOC: LB.ED 07:44
DX: A41.9 Sepsis, unspecified organism (principal); L02.416 Cutaneous abscess of left lower limb; R19.7 Diarrhea, unspecified; J44.9 Chronic obstructive pulmonary disease, unspecified; Z20.822 Contact with and (suspected) exposure to COVID-19; Z88.0 Allergy status to penicillin; Z79.899 Other long term (current) drug therapy; Z79.82 Long term (current) use of aspirin; Z72.0 Tobacco use
CPT/HCPCS: 36415; 71045; 80053; 83605; 85025; 87493; 93005; 96365; 96366; 96367; 96375; 96376; 99284-25; A0425; A0429; J1170; J2185; J2270; J3370; J7030; J7050; J7120; U0002

== ENCOUNTER 2021-09-15 12:52 | Inpatient (IN) | payer BC, MEDICAID ==
[2021-09-15] MEDS ORDERED: Ketorolac 30 MG/ML SDV IVPUSH ONE (13:34)
[2021-09-15] MEDS ORDERED: Sodium Chloride 0.9% 10 ML Syringe FLUSH PRN ×2 (13:35→14:20)
[2021-09-15] MEDS ORDERED: Sodium Chloride 0.9% 1,000 ML IV SCH (13:45)
[2021-09-15 14:17] LABS: ESTIMATED GFR 99 mL/min (>60)
[2021-09-15] MEDS ORDERED: Sodium Chloride 0.9% 50 ML SDV FLUSH ONE (14:37)
[2021-09-15] MEDS ORDERED: Iopamidol 612 MG/ML 100 ML Bottle IV SCH (14:45)
[2021-09-15] MEDS: Piperacillin/Tazobactam 4.5 GM in Sodium Chloride 0.9% 100 ML IV ONE ×2 (14:50→14:58)
[2021-09-15] MEDS ORDERED: Morphine 2 MG/ML SYRINGE IVPUSH ONE (15:21)
[2021-09-15] MEDS ORDERED: Ondansetron 4 MG/2 ML SDV ONE (15:23)
[2021-09-15] MEDS ORDERED: Morphine 2 MG/ML SYRINGE ONE (15:34)
[2021-09-15] MEDS ORDERED: LORazepam 2 MG/ML SDV IV SCH (16:45)
[2021-09-15] MEDS: HYDROmorphone 2 MG/ML Syringe IVPUSH SCH ×4 (16:45→23:48)
[2021-09-15] MEDS ORDERED: HYDROmorphone 2 MG/ML Syringe ONE (16:53)
[2021-09-15] MEDS ORDERED: LORazepam 2 MG/ML SDV IVPUSH PRN (17:22)
[2021-09-15] MEDS ORDERED: Diltiazem 50 MG/10 ML SDV IVPUSH SCH (17:30)
[2021-09-15] MEDS: Lactated Ringers 1,000 ML IV SCH ×2 (17:30→22:01)
[2021-09-15] MEDS: Flecainide 100 MG Tab PO SCH (18:12)
[2021-09-15] MEDS ORDERED: FLECAINIDE ACETATE PO SCH (20:00)
[2021-09-16] MEDS ORDERED: Ondansetron 4 MG Tab.DIS PO PRN (04:26)
[2021-09-16] MEDS ORDERED: Piperacillin/Tazobactam 3.375 GM AdvVial ONE (04:30)
[2021-09-16] MEDS: Piperacillin/Tazobactam 3.375 GM in Sodium Chloride 0.9% 50 ML IV SCH ×2 (04:47→09:06)
[2021-09-16] MEDS: Lactated Ringers 1,000 ML IV SCH ×2 (04:49→12:20)
[2021-09-16] MEDS: HYDROmorphone 2 MG/ML Syringe IVPUSH PRN ×3 (04:49→10:56)
[2021-09-16] MEDS: HYDROmorphone 2 MG/ML Syringe IVPUSH SCH ×2 (05:06→05:07)
[2021-09-16 07:07] VITALS: BP 126/76
[2021-09-16] MEDS: Flecainide 100 MG Tab PO SCH (08:28)
[2021-09-16 09:12] LABS: ESTIMATED GFR 100 mL/min (>60)
[2021-09-16 11:59] VITALS: PULSE 79
[2021-09-16] MEDS ORDERED: Diltiazem 180 MG Cap.CD PO SCH (20:00)
== END 2021-09-16 12:48 | DRG 282 ==
LOC: LB.ED 12:52 → LB.MS 16:00
PROVIDERS: ADMIT Physician Assistant; ATTEND Physician Assistant
DX: K85.90 Acute pancreatitis without necrosis or infection, unspecified (principal); U07.1 COVID-19; I48.91 Unspecified atrial fibrillation; J44.9 Chronic obstructive pulmonary disease, unspecified; G89.29 Other chronic pain; M54.9 Dorsalgia, unspecified; Z79.82 Long term (current) use of aspirin; Z79.899 Other long term (current) drug therapy; Z86.19 Personal history of other infectious and parasitic diseases; Z87.891 Personal history of nicotine dependence; R65.10 Systemic inflammatory response syndrome (SIRS) of non-infectious origin without acute organ dysfunction; Z93.3 Colostomy status; K60.4 Rectal fistula
CPT/HCPCS: 36415; 74018; 74177; 80053; 82150; 83605; 85025; 85610; 86140; 93005; 99222; 99238; A0425; A0429; A9270-GY; J1170; J1885; J2270; J2405; J2543; J3490; J7030; J7120; Q0162; Q9967; U0002

== ENCOUNTER 2024-01-11 21:03 | Emergency (ER) | payer MEDICAID ==
[2024-01-11] MEDS: Bacitracin Oint 1 GM U/D Packet TOP ONE (21:30)
[2024-01-11] MEDS: Lidocaine 1% with EPINEPHrine 1:100,000 50 ML MDV INFILT ONE (21:30)
[2024-01-11 22:11] VITALS: BP 135/84; PULSE 80
== END 2024-01-11 21:57 | disposition home or self-care (01) ==
LOC: LB.ED 21:03
DX: S01.511A Laceration without foreign body of lip, initial encounter (principal); J44.9 Chronic obstructive pulmonary disease, unspecified; Z87.891 Personal history of nicotine dependence; Z79.82 Long term (current) use of aspirin; Z79.899 Other long term (current) drug therapy; W01.190A Fall on same level from slipping, tripping and stumbling with subsequent striking against furniture, initial encounter
CPT/HCPCS: 12006; 12013; 99282; 99283